=== PATIENT | male | born 2000 | race Hispanic/Latino ===

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

== ENCOUNTER 2021-07-14 16:30 | Emergency (ER) | payer OTHER ==
[2021-07-14] MEDS ORDERED: Acetaminophen 500 MG TAB ONE (16:59)
[2021-07-15 12:28] LABS: SARS-CoV-2 PCR by NAA DETECTED (NotDetected)
== END 2021-07-14 18:44 | disposition home or self-care (01) ==
LOC: ERS 16:30
DX: U07.1 COVID-19 (principal)
CPT/HCPCS: 87081; 87430; 99284; U0003; U0005